=== PATIENT | female | born 1995 | race African-American/Black ===

== ENCOUNTER 2019-06-02 16:24 | Emergency (ER) | payer BC, OTHER ==
[~2019-06-02] VITALS: Ht 170.2 cm; Wt 89.8 kg
[2019-06-02] MEDS ORDERED: HYDROcodone/APAP 5/325MG 1 TAB TABLET PO ONE (17:30)
[2019-06-02 17:43] VITALS: BP 116/57
[2019-06-02] MEDS ORDERED: ERYTHROMYCIN 0.5% OPHTH OINTMENT 1GM TUBE. OD ONE (19:15)
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
[2019-06-02] MEDS ORDERED: NEOMY/BACITR/POLYMYXIN OINT PACKET. TP ONE (20:00)
[2019-06-02] MEDS ORDERED: DIPHTH,PERTUSS(ACELL),TET TOX 0.5 ML DISP.SYRIN. VAX IM ONE (20:00)
[2019-06-02] MEDS ORDERED: AMOX1TAB61 PO (20:06)
[2019-06-02] MEDS ORDERED: ERYT1OIN6 OD (20:06)
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
== END 2019-06-02 20:29 | disposition home or self-care (01) ==
LOC: ER 16:24
DX: S00.83XA Contusion of other part of head, initial encounter (principal); S00.31XA Abrasion of nose, initial encounter; S00.81XA Abrasion of other part of head, initial encounter; S20.479A Other superficial bite of unspecified back wall of thorax, initial encounter; H10.211 Acute toxic conjunctivitis, right eye; M79.674 Pain in right toe(s); Z77.098 Contact with and (suspected) exposure to other hazardous, chiefly nonmedicinal, chemicals; Y04.1XXA Assault by human bite, initial encounter; Y93.89 Activity, other specified; Y92.89 Other specified places as the place of occurrence of the external cause; Y99.8 Other external cause status
CPT/HCPCS: 70450; 70490; 73630; 81025; 90471; 90715; 99285

== ENCOUNTER 2020-08-21 00:36 | Observation (INO) | payer BC, MEDICAID ==
[~2020-08-21 00:36] MED LIST: AMOX1TAB61 PO; ERYT1OIN6 OD
[2020-08-21] MEDS ORDERED: ACETAMINOPHEN 325 MG TABLET. PO PRN (01:00)
[2020-08-21] MEDS ORDERED: IV RINGERS,LACTATED 1000ML 1,000 ML IV PRN (01:00)
[2020-08-21 01:05] LABS: BILIRUBIN,URINE NEGATIVE (NEG); CLARITY,URINE CLOUDY; COLOR,URINE YELLOW; NITRITE,URINE NEGATIVE (NEG); PROTEIN,URINE NEGATIVE (NEG-TRACE)
[2020-08-21 01:17] LABS: BACTERIA,URINE MANY /HPF (0-FEW); RBC,URINE 0 /HPF (0-2)
[2020-08-21 01:28] LABS: BARBITURATES NEG (NEG); BENZODIAZEPINES NEG (NEG); CANNABINOIDS NEG (NEG); COCAINE NEG (NEG); METHADONE NEG (NEG); OPIATES NEG (NEG); PHENCYCLIDINE NEG (NEG)
[2020-08-21 01:30] LABS: AMPHETAMINE/METHAMPHETAMINE NEG (NEG)
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
== END 2020-08-21 02:29 | disposition home or self-care (01) ==
LOC: 3 SO LND 00:36
PROVIDERS: ADMIT Obstetrics & Gynecology; ATTEND Obstetrics & Gynecology
DX: O9A.213 Injury, poisoning and certain other consequences of external causes complicating pregnancy, third trimester (principal); S09.93XA Unspecified injury of face, initial encounter; S00.11XA Contusion of right eyelid and periocular area, initial encounter; O26.893 Other specified pregnancy related conditions, third trimester; R10.9 Unspecified abdominal pain; Z3A.35 35 weeks gestation of pregnancy; Z79.899 Other long term (current) drug therapy; Y04.8XXA Assault by other bodily force, initial encounter; Y93.89 Activity, other specified; Y92.89 Other specified places as the place of occurrence of the external cause; Y99.8 Other external cause status
CPT/HCPCS: 36415; 59025; 76815; 80307; 81001; 85460; 86900; 86901; 87086; G0378; G0379